=== PATIENT | female | born 1965 | race Caucasian/White ===

== ENCOUNTER 2016-07-24 23:18 | Emergency (ER) | payer OTHER ==
[2016-07-25 00:26] LABS: BASOPHIL % 0.4 % (0-2); PLATELET COUNT 364 x10^3mcL (130-400); RED CELL DISTRIBUTION WIDTH 12.5 % (11.5-14.5)
[2016-07-25 01:09] LABS: CALCIUM 9.5 mg/dL (8.5-10.1); CARBON DIOXIDE 25.9 mmol/L (21-32); CHLORIDE SERUM 106 mmol/L (98-107); CREATININE SERUM 0.7 mg/dL (0.6-1.0); GFR1 > 60 mL/min; GLUCOSE SERUM 117 mg/dL (74-106); POTASSIUM SERUM 3.1 mmol/L (3.5-5.1); SODIUM SERUM 143 mmol/L (136-145)
[2016-07-25 01:15] LABS: ALBUMIN 4.3 g/dL (3.4-5.0); ALKALINE PHOSPHATASE 87 U/L (46-116); ALT/SGPT 33 U/L (14-59); AST/SGOT 16 U/L (15-37); BILIRUBIN TOTAL 0.2 mg/dL (0.20-1.00); TOTAL PROTEIN, SERUM 8.1 g/dL (6.4-8.2)
[2016-07-25 01:36] LABS: CK-MB 0.7 ng/mL (0-3.6)
[2016-07-25 01:53] VITALS: BP 155/86
== END 2016-07-25 01:53 | disposition home or self-care (01) ==
LOC: ED 23:18
PROVIDERS: Emergency Medicine
DX: R00.2 Palpitations (principal); R53.1 Weakness; F43.9 Reaction to severe stress, unspecified; E78.00 Pure hypercholesterolemia, unspecified; I10 Essential (primary) hypertension
CPT/HCPCS: 36415; Q0092

== ENCOUNTER 2017-02-20 20:17 | Emergency (ER) | payer OTHER ==
[~2017-02-20] VITALS: Ht 165.1 cm; Wt 70.8 kg
[2017-02-20 21:58] VITALS: BP 170/99; Ht 165.1 cm; Wt 70.8 kg
== END 2017-02-21 04:54 | disposition left against medical advice (07) ==
LOC: ED 20:17
DX: Z53.21 Procedure and treatment not carried out due to patient leaving prior to being seen by health care provider (principal)

== ENCOUNTER 2017-02-23 06:43 | Inpatient (IN) | payer OTHER ==
[~2017-02-23] VITALS: Ht 165.1 cm; Wt 74.1 kg
[2017-02-23 07:00] VITALS: Ht 165.1 cm; Wt 74.1 kg
[2017-02-23 09:24] LABS: BASOPHIL % 0.4 % (0-2); PLATELET COUNT 372 x10^3mcL (130-400); RED CELL DISTRIBUTION WIDTH 12.4 % (11.5-14.5)
[2017-02-23 09:35] LABS: CALCIUM 9.6 mg/dL (8.5-10.1); CARBON DIOXIDE 28.6 mmol/L (21-32); CHLORIDE SERUM 101 mmol/L (98-107); CREATININE SERUM 0.6 mg/dL (0.6-1.0); GFR1 > 60 mL/min; GLUCOSE SERUM 124 mg/dL (74-106); POTASSIUM SERUM 3.8 mmol/L (3.5-5.1); SODIUM SERUM 140 mmol/L (136-145)
[2017-02-23 09:40] LABS: ALBUMIN 4.1 g/dL (3.4-5.0); ALKALINE PHOSPHATASE 76 U/L (46-116); ALT/SGPT 19 U/L (14-59); AMYLASE 37 U/L (25-115); AST/SGOT 15 U/L (15-37); BILIRUBIN TOTAL 0.57 mg/dL (0.20-1.00); LIPASE 130 IU/L (73-393); TOTAL PROTEIN, SERUM 7.8 g/dL (6.4-8.2)
[2017-02-23] MEDS ORDERED: METOPROLOL SUC100 M2 PO (13:58)
[2017-02-23 15:41] VITALS: BP 144/71
[2017-02-23 17:08] LABS: FREE T4 1.3 ng/dL (0.76-1.46); FREE THYROXINE INDEX 3.7 ug/dL (1.4-4.5); T4(THYROXINE) 11.1 ug/dL (4.7-13.3)
[2017-02-23 17:09] LABS: T3 TOTAL 1.1 ng/mL
[2017-02-23 17:23] LABS: MAGNESIUM 2.5 mg/dL (1.8-2.4); PHOSPHOROUS 3.9 mg/dL (2.5-4.9)
[2017-02-23 21:40] VITALS: BP 138/85
[2017-02-24 05:48] VITALS: BP 115/72
[2017-02-24 06:45] LABS: BASOPHIL % 0.3 % (0-2); PLATELET COUNT 323 x10^3mcL (130-400); RED CELL DISTRIBUTION WIDTH 12.5 % (11.5-14.5)
[2017-02-24 06:56] LABS: CALCIUM 8.6 mg/dL (8.5-10.1); CARBON DIOXIDE 28.6 mmol/L (21-32); CHLORIDE SERUM 108 mmol/L (98-107); CHOLESTEROL 172 mg/dL (<200); CHOLESTEROL/HDL RATIO 3.9; CREATININE SERUM 0.7 mg/dL (0.6-1.0); GFR1 > 60 mL/min; GLUCOSE SERUM 91 mg/dL (74-106); HDL CHOLESTEROL 44 mg/dL (40-60); SODIUM SERUM 144 mmol/L (136-145); TRIGLYCERIDES 129 mg/dL (<150)
[2017-02-24 08:06] VITALS: BP 109/69
[2017-02-24 12:32] VITALS: BP 106/67
[2017-02-24] MEDS ORDERED: DUL5 PO (14:29)
[2017-02-24 14:37] VITALS: BP 106/67
== END 2017-02-24 15:13 | disposition home or self-care (01) | DRG 390 ==
LOC: ED 06:43 → DU 13:46
PROVIDERS: Emergency Medicine; Family Medicine
DX: K56.7 Ileus, unspecified (principal); K66.0 Peritoneal adhesions (postprocedural) (postinfection); I10 Essential (primary) hypertension; E78.5 Hyperlipidemia, unspecified; Z68.27 Body mass index [BMI] 27.0-27.9, adult; Z90.710 Acquired absence of both cervix and uterus
CPT/HCPCS: 83880; 84439; J1885; J2060; J2405; J7030; Q0092; Q9967

== ENCOUNTER 2018-04-16 16:18 | Emergency (ER) | payer OTHER ==
[~2018-04-16] VITALS: Ht 170.2 cm; Wt 70.8 kg
[~2018-04-16 16:18] MED LIST: DUL5 PO; METOPROLOL SUC100 M2 PO
[2018-04-16 16:25] VITALS: Ht 170.2 cm; Wt 70.8 kg
[2018-04-16 19:30] LABS: BASOPHIL % 0.2 % (0-2); RED CELL DISTRIBUTION WIDTH 12.6 % (11.5-14.5)
[2018-04-16 19:32] LABS: microscopic required? YES; urine erythrocyte TRACE (NEGATIVE)
[2018-04-16 19:36] LABS: PLATELET COUNT 433 x10^3mcL (130-400)
[2018-04-16 19:38] LABS: AMPHETAMINE QUAL UR NONE DETECTED (See below)
[2018-04-16 19:41] LABS: CALCIUM 9.6 mg/dL (8.5-10.1); CARBON DIOXIDE 24.8 mmol/L (21-32); CHLORIDE SERUM 102 mmol/L (98-107); CREATININE SERUM 0.7 mg/dL (0.6-1.0); GFR1 > 60 mL/min; GLUCOSE SERUM 129 mg/dL (74-106); POTASSIUM SERUM 3.5 mmol/L (3.5-5.1); SODIUM SERUM 139 mmol/L (136-145)
[2018-04-16 19:45] LABS: ALBUMIN 4.4 g/dL (3.4-5.0); ALKALINE PHOSPHATASE 78 U/L (46-116); ALT/SGPT 29 U/L (14-59); AST/SGOT 18 U/L (15-37); BILIRUBIN TOTAL 0.3 mg/dL (0.20-1.00); HDL CHOLESTEROL 52 mg/dL (40-60); MAGNESIUM 2.2 mg/dL (1.8-2.4)
[2018-04-16 19:47] LABS: CHOLESTEROL 241 mg/dL (<200); TOTAL PROTEIN, SERUM 8.8 g/dL (6.4-8.2)
[2018-04-16 20:33] VITALS: BP 140/81
== END 2018-04-16 20:33 | disposition home or self-care (01) ==
LOC: ED 16:18
PROVIDERS: Emergency Medicine
DX: I16.0 Hypertensive urgency (principal); E78.00 Pure hypercholesterolemia, unspecified; I45.10 Unspecified right bundle-branch block
CPT/HCPCS: 36415; 82962; J1940; Q0092

== ENCOUNTER 2018-12-27 19:04 | Emergency (ER) | payer OTHER ==
[~2018-12-27] VITALS: Ht 165.1 cm; Wt 72.6 kg
[2018-12-27 21:05] VITALS: BP 120/71
== END 2018-12-27 21:05 | disposition home or self-care (01) ==
LOC: ED 19:04
DX: I10 Essential (primary) hypertension (principal); F41.1 Generalized anxiety disorder; E78.00 Pure hypercholesterolemia, unspecified; Z90.710 Acquired absence of both cervix and uterus

== ENCOUNTER 2019-04-02 22:23 | Emergency (ER) | payer OTHER ==
[~2019-04-02] VITALS: Ht 162.6 cm; Wt 75.3 kg
[2019-04-02 22:31] VITALS: Ht 162.6 cm; Wt 75.3 kg
[2019-04-02 23:00] LABS: BASOPHIL % 0.6 % (0-2); PLATELET COUNT 488 x10^3mcL (130-400); RED CELL DISTRIBUTION WIDTH 12.8 % (11.5-14.5)
[2019-04-02 23:08] LABS: CALCIUM 10.1 mg/dL (8.5-10.1); CARBON DIOXIDE 21.5 mmol/L (21-32); CHLORIDE SERUM 103 mmol/L (98-107); CREATININE SERUM 0.5 mg/dL (0.6-1.0); GFR1 > 60 mL/min; GLUCOSE SERUM 181 mg/dL (74-106); POTASSIUM SERUM 3.5 mmol/L (3.5-5.1); SODIUM SERUM 139 mmol/L (136-145)
[2019-04-02 23:13] LABS: ALBUMIN 4.5 g/dL (3.4-5.0); ALKALINE PHOSPHATASE 88 U/L (46-116); ALT/SGPT 47 U/L (14-59); AST/SGOT 32 U/L (15-37); BILIRUBIN TOTAL 0.4 mg/dL (0.20-1.00); MAGNESIUM 2.3 mg/dL (1.8-2.4)
[2019-04-02 23:34] LABS: T3 TOTAL 1.46 ng/mL
[2019-04-02 23:47] LABS: FREE T4 1.29 ng/dL (0.76-1.46); FREE THYROXINE INDEX 3.1 ug/dL (1.4-4.5); T4(THYROXINE) 9.7 ug/dL (4.7-13.3)
[2019-04-03 00:24] VITALS: BP 139/81
== END 2019-04-03 00:24 | disposition home or self-care (01) ==
LOC: ED 22:23
PROVIDERS: Emergency Medicine; Specialist
DX: R00.2 Palpitations (principal); I10 Essential (primary) hypertension; F43.9 Reaction to severe stress, unspecified
CPT/HCPCS: 36415; 84439; Q0092